=== PATIENT | male | born 1980 | race Caucasian/White ===

== ENCOUNTER 2019-10-18 13:11 | Emergency (ER) | payer OTHER, BC, SELFPAY ==
[2019-10-18 13:32] VITALS: BP 141/86; PULSE 78; RESP 20; TEMP 36.4; O2SAT 99
--- NOTE | 2019-10-18 14:14 | ED.UPPEXIN ---
HPI - Extremity Injury (Upper) General Chief Complaint: Extremity Injury, Upper Stated Complaint: R HAND TINGLING Time Seen by Provider: 10/18/19 13:15 Source: patient Mode of arrival: ambulatory Limitations: no limitations History of Present Illness HPI narrative: 39-year-old male presents to urgent care with complaints of intermittent tingling to his right first, second and third fingers since 7 AM today. 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 Patient denies weakness, decreased range of motion, injury to his right hand or fingers. Patient has not tried taking any [id number] medications for symptoms. Patient denies headache, dizziness, blurred vision, chest pain or shortness of breath. MD complaint: injury to: right Onset (ago): hour(s) (7) Other Extremity Injury: Right: fingers Other injuries: none Handedness: right Relieving factors: none Exacerbating factors: none Related Data Home Medications Medication Instructions Recorded Confirmed Fish Oil/Vit D/Multivitamin 10/18/19 atorvastatin 10 mg PO HS 10/18/19 10/18/19 dulaglutide [Trulicity] 1.5 mg SUBCUT WEEKLY 10/18/19 10/18/19 omeprazole 20 mg PO DAILY 10/18/19 10/18/19 Allergies Allergy/AdvReac Type Severity Reaction Status Date / Time amoxicillin Allergy Swelling Verified 10/18/19 13:38 of Lip/Tongue/Throat Review of Systems Review of Systems: All systems reviewed & are unremarkable except as noted in HPI and below Constitutional: Constitutional: Denies chills, Denies fever(s) and Denies weakness Cardiovascular: Cardiovascular: Denies chest pain and Denies radiating jaw, neck or arm pain Respiratory: Respiratory: Denies cough and Denies dyspnea Gastrointestinal: Gastrointestinal: Denies abdominal pain, Denies diarrhea, Denies nausea and Denies vomiting Musculoskeletal: Comments: tingling to right fingers Neurologic: Denies vertigo, Denies dizziness, Denies syncope and Denies focal weakness [facility] Past Medical History Medical History (Updated 10/18/19 @ 14:20 by Ericka Bledsoe APN) Diabetes mellitus Hypercholesteremia Social History Social History (Updated 10/18/19 @ 14:17 by Ericka Bledsoe APN) Smoking status: Former smoker Exam Const: General: healthy appearing, no acute distress and alert Nutritional Appearance: well nourished Orientation/consciousness: patient oriented x3 Limitations: no limitations Eyes: Pupils: Equal, round and reactive pupils present Neck: Neck: normal visual inspection Chest: Chest palpation & inspection: normal inspection of the chest Resp: Effort & Inspection: normal respiratory effort Auscultation: clear to auscultation bilaterally Cardio: Rate: regular rate Rhythm: regular rhythm Heart sounds: no murmurs Skin: General skin exam: normal color and jaundice Rashes: no rashes Neuro: General: patient oriented x3, moves all extremities, no meningeal signs, no focal motor deficits and CN's II-XI intact bilaterally Cranial nerves: Yes Nystagmus not present Speech: normal speech Gait exam (Neuro): Normal gait present Extrem: General: normal to inspection and no edema Other: Hand grasps are equal and strong. Full range of motion noted to bilateral hands. Pulses are within normal limits. There is no swelling, bruising, erythema or signs of infection noted. Course Vital Signs Vital signs: Vital Signs Temperature 36.4 C 10/18/19 13:32 Pulse Rate 78 10/18/19 13:32 Respiratory Rate 20 10/18/19 13:32 Blood Pressure 141/86 H 10/18/19 13:32 Pulse Oximetry 99 10/18/19 13:32 Temperature 36.4 C 10/18/19 13:32 Pulse Rate 78 10/18/19 13:32 Respiratory Rate 20 10/18/19 13:32 Blood Pressure 141/86 H 10/18/19 13:32 Pulse Oximetry 99 10/18/19 13:32 MDM - Extremity Injury (Upper) MDM Narrative Medical decision making narrative: Carpal tunnel discussed in full detail with monty
== END 2019-10-18 14:28 | disposition home or self-care (01) ==
PROVIDERS: Emergency Provider Nurse Practitioner Family; PCP Family Medicine
DX: R20.2 Paresthesia of skin (principal); E11.9 Type 2 diabetes mellitus without complications; E78.00 Pure hypercholesterolemia, unspecified; Z87.891 Personal history of nicotine dependence
CPT/HCPCS: 99203; G0463

== ENCOUNTER 2020-05-01 10:03 | Emergency (ER) | payer BC, SELFPAY ==
--- NOTE | ~2020-05-01 | CT_ITS ---
EXAMINATION: CT facial bones wo con DATE: 05/01/2020 11:44 INDICATION: Facial pain, initial encounter TECHNIQUE: Computed tomography (CT) of the facial bones and maxillofacial region was performed withou t intravenous contrast. The dose-length product (DLP) was 565.90 mGy-cm. Automated exposure control a nd iterative reconstruction technique were employed. COMPARISON: None. FINDINGS: There is a comminuted fracture of the left nasal bone. No additional facial fracture is rodolfo ntified. There is left facial soft tissue swelling. A the left ostiomeatal complex the visualized cer vical spine is unremarkable polyp or mucous retention cyst is noted in the left maxillary sinus. IMPRESSION: 1. Comminuted left nasal bone fracture. 2. Left maxillary sinus disease. Reviewed, dictated and finalized at location B.
[2020-05-01 10:05] VITALS: BP 176/157; PULSE 80; RESP 16; TEMP 36.6; O2SAT 98
[2020-05-01 11:01] VITALS: BP 151/88; PULSE 75
--- NOTE | 2020-05-01 11:03 | ED.HEATRA ---
HPI - Head Injury General Chief complaint: Head Injury <JENAE De La Garza Last Filed: 05/01/20 12:14> Stated complaint: facial injury <JENAE De La Garza Last Filed: 05/01/20 12:14> Time Seen by Provider: 05/01/20 10:54 <JENAE De La Garza Last Filed: 05/01/20 12:14> Source: patient <JENAE De La Garza Last Filed: 05/01/20 12:14> Mode of arrival: ambulatory <JENAE De La Garza Last Filed: 05/01/20 12:14> Limitations: no limitations <JENAE De La Garza Last Filed: 05/01/20 12:14> History of Present Illness HPI Narrative: This is a 39-year-old male that presents to the emergency department for nasal injury today. Reports he was hit in the nose with a wrench while working on a trailer. Reports he had a nosebleed. Reports a superficial laceration to the nose and pain and throbbing. Denies vision changes, vomiting, loss of consciousness, numbness, or weakness. <Kim Verde PA-C - Last Filed: 05/01/20 12:14> Related Data Home medications: Home Medications Medication Instructions Recorded Confirmed Fish Oil/Vit D/Multivitamin 10/18/19 atorvastatin 10 mg PO HS 10/18/19 10/18/19 dulaglutide [Trulicity] 1.5 mg SUBCUT WEEKLY 10/18/19 10/18/19 omeprazole 20 mg PO DAILY 10/18/19 10/18/19 <JENAE De La Garza Last Filed: 05/01/20 12:14> Allergies/Adverse reactions: Allergies Allergy/AdvReac Type Severity Reaction Status Date / Time amoxicillin Allergy Swelling Verified 05/01/20 10:08 of Lip/Tongue/Throat <JENAE De La Garza Last Filed: 05/01/20 12:14> Review of Systems Review of Systems: Narrative: CONSTITUTIONAL: Denies fever EYES: Denies visual changes ENT: Reports nasal pain GASTROINTESTINAL: Denies vomiting NEUROLOGIC: Denies headache, numbness, or weakness. <Kim Verde PA-C - Last Filed: 05/01/20 12:14> All systems reviewed & are unremarkable except as noted in HPI and below <Kim Verde PA-C - Last Filed: 05/01/20 12:14> PMFSH Past Medical History Medical History: Medical History (Updated 05/01/20 @ 12:12 by Kim Verde PA-C) Diabetes mellitus Hypercholesteremia <Kim Verde PA-C - Last Filed: 05/01/20 12:14> Social History Social History: Social History (Updated 10/18/19 @ 14:17 by Ericka Bledsoe, [employer]) Smoking status: Former smoker <Kim Verde PA-C - Last Filed: 05/01/20 12:14> Exam Narrative: Exam Narrative: GENERAL: Well-appearing, well-nourished, and in no acute distress. HEAD: Normocephalic. Several small, superficial lacerations over the left side of the nose EYES: PERRLA and EOMI. ENT: Small amount of dried blood in the left nare. Mucous membranes moist. Oropharynx without tonsillar hypertrophy exudate or other lesions. NECK: Supple. No adenopathy or masses. CHEST: Clear to auscultation. No respiratory distress. No wheezes rales or rhonchi HEART: Regular rate and rhythm. No murmur heard. Normal peripheral pulses. EXTREMITIES: Normal range of motion. No edema. Strength equal in bilateral upper extremities (5/5) SKIN: Warm, dry, no rash. NEURO: No focal deficits. Alert and oriented x3. Cranial nerves II through XII grossly intact PSYCH: Normal mood and affect <Kim Verde PA-C - Last Filed: 05/01/20 12:14> Course Vital Signs Vital signs: Vital Signs Temperature 97.9 F 05/01/20 10:05 Pulse Rate 80 05/01/20 10:05 Respiratory Rate 16 05/01/20 10:05 Blood Pressure 176/157 H 05/01/20 10:05 Pulse Oximetry 98 05/01/20 10:05 Temperature 97.9 F 05/01/20 10:05 Pulse Rate 82 05/01/20 12:28 Respiratory Rate 19 05/01/20 12:28 Blood Pressure 151/88 H 05/01/20 12:28 Pulse Oximetry 97 05/01/20 12:28 <Kim Verde PA-C - Last Filed: 05/01/20 12:14> Vital Signs Temperature 97.9 F 05/01/20 10:05 Pulse Rate 80 05/01/20 10:05 Respiratory Rate 16 05/01/20 10:05 Blood Pressure
--- NOTE | 2020-05-01 11:19 | PC.NURSE ---
rn report given by adal villa
[2020-05-01] MEDS: IBUPROFEN 600 MG TABLET PO (11:51)
[2020-05-01 12:28] VITALS: BP 151/88; PULSE 82; RESP 19; O2SAT 97
[2020-05-01] MEDS: TETANUS,DIPHTHERIA,AC PERTUSSIS ADULT (0.5 ML) BOOSTRIX IM (12:28)
== END 2020-05-01 12:30 | disposition home or self-care (01) ==
PROVIDERS: Emergency Provider General Practice; PCP Family Medicine
DX: S02.2XXA Fracture of nasal bones, initial encounter for closed fracture (principal); I10 Essential (primary) hypertension; E11.9 Type 2 diabetes mellitus without complications; E78.00 Pure hypercholesterolemia, unspecified; Z87.891 Personal history of nicotine dependence; J32.0 Chronic maxillary sinusitis; W27.0XXA Contact with workbench tool, initial encounter; Z23 Encounter for immunization
CPT/HCPCS: 70486; 90471; 90715; 99284; A9270